=== PATIENT | female | born 1950 | race African-American/Black ===

== ENCOUNTER 2019-05-10 10:13 | Day surgery (SDC) | payer OTHER ==
[2019-05-10 10:36] VITALS: BMI 24.9
[2019-05-10 12:32] VITALS: TEMP 98.2
[2019-05-10 12:45] VITALS: BP 136/72; PULSE 74
--- NOTE | 2019-05-17 12:03 | PATH ---
Surgical Pathology Report Patient Name: JERROD DOLL [facility]. Rec. #: [id number] /Age/Gender: 1950 (Age: 69) / F Account: [id number] Location: [id number] Taken: 05/10/2019 Received: 05/10/2019 Reported: 05/17/2019 Physicians: Arthur Alonzo M.D. Specimen(s) Received A: POLYPECTOMY HEPATIC FLEXURE B: POLYPECTOMY TRANSVERSE COLON X2 (PROXIMAL) Clinical History Colon, polyps, diverticulosis Final Diagnosis A. HEPATIC FLEXURE, POLYP, HOT SNARE POLYPECTOMY: TUBULAR ADENOMA. B. TRANSVERSE COLON X2 (PROXIMAL), HOT SNARE POLYPECTOMY: TUBULAR ADENOMAS (2). Electronically Signed Rosalba Bermudez M.D. Gross Description A. Received in formalin, labeled "hot snare polypectomy hepatic flexure" are 3 leong, irregular portions of soft tissue, ranging from 0.3-0.4 cm. in greatest dimension. The specimens are submitted in toto in one cassette. B. received in formalin, labeled, "hot snare polypectomy, transverse colon x2 (proximal) is an 0.8 x 0.5 x 0.5 cm portion of leogn, polypoid tissue and an additional portion of leong tissue measuring 0.2 cm in greatest dimension. The base of the polypoid tissue is inked and the tissue is bisected. The specimens are submitted in total in one cassette. AE/05/11/2019 ebram/05/11/2019
== END 2019-05-10 12:47 | disposition home or self-care (01) ==
LOC: FASU-ENDO 10:13
PROVIDERS: ATTEND Internal Medicine Gastroenterology
PROC: 0DBL8ZX Excision of Transverse Colon, Via Natural or Artificial Opening Endoscopic, Diagnostic (ICD-10-PCS; principal; 2019-05-10 11:32)
DX: Z86.010 Personal history of colon polyps (principal); Z83.71 Family history of colonic polyps; D12.3 Benign neoplasm of transverse colon; K57.30 Diverticulosis of large intestine without perforation or abscess without bleeding
CPT/HCPCS: 88305-TC

== ENCOUNTER 2023-03-27 07:34 | Day surgery (SDC) | payer OTHER ==
[2023-03-20 13:57] VITALS: BMI 24.0
[2023-03-27] MEDS ORDERED: GLUCAGON 1 MG KIT ONE (08:54)
[2023-03-27 10:46] VITALS: TEMP 97.1
[2023-03-27 10:57] VITALS: PULSE 73
[2023-03-27 11:16] VITALS: BP 128/64; RESP 17
== END 2023-03-27 10:30 | disposition home or self-care (01) ==
LOC: FASU-ENDO 07:34
PROVIDERS: ATTEND Internal Medicine Gastroenterology
PROC: 0DBL8ZX Excision of Transverse Colon, Via Natural or Artificial Opening Endoscopic, Diagnostic (ICD-10-PCS; 2023-03-27)
PROC: 0DBH8ZX Excision of Cecum, Via Natural or Artificial Opening Endoscopic, Diagnostic (ICD-10-PCS; 2023-03-27)
PROC: 0DBK8ZX Excision of Ascending Colon, Via Natural or Artificial Opening Endoscopic, Diagnostic (ICD-10-PCS; principal; 2023-03-27 08:42)
DX: Z12.11 Encounter for screening for malignant neoplasm of colon (principal); D12.0 Benign neoplasm of cecum; D12.2 Benign neoplasm of ascending colon; D12.3 Benign neoplasm of transverse colon; K57.30 Diverticulosis of large intestine without perforation or abscess without bleeding; Z86.010 Personal history of colon polyps; Z83.71 Family history of colonic polyps
CPT/HCPCS: 88305-TC